=== PATIENT | female | born 1995 | race Caucasian/White ===

== ENCOUNTER 2019-02-17 14:12 | Emergency (ER) | payer OTHER ==
[2019-02-17] MEDS ORDERED: Ondansetron INJ* 2 MG/ML VIAL IV ONE (15:38)
[2019-02-17] MEDS ORDERED: NS 0.9% 1000 ML** 1,000 ML IV ONE (15:38)
--- NOTE | 2019-02-17 15:48 | ED ---
Nausea/Vomiting/Diarrhea HPI - HPI Summary HPI Summary: Patient is a 23-year-old female who presents emergency department for nausea and vomiting since this morning. Patient states she drank too much last night and now cannot keep any fluids down. Patient states she had 6+ glasses of wine. Notes epigastric pain. Otherwise denies abdominal pain, fever, diarrhea. Symptoms are mild in severity. No current modifying factors. - History of Current Complaint Chief Complaint: EDNauseaVomitDiarrh Stated Complaint: VOMITING Time Seen by Provider: 02/17/19 15:16 Hx Obtained From: Patient Pain Intensity: 0 - Allergies/Home Medications Allergies/Adverse Reactions: Allergies Allergy/AdvReac Type Severity Reaction Status Date / Time No Known Allergies Allergy Verified 02/17/19 15:59 Home Medications: Home Medications Bupropion XL* [Wellbutrin XL *] 150 mg PO DAILY 02/17/19 [History Confirmed ] Dextroamphetamine/Amphetamine [Mydayis ER 50 mg Capsule] 50 mg PO DAILY [History Confirmed 02/17/19] Omeprazole 20 mg PO DAILY 02/17/19 [History Confirmed 02/17/19] Ondansetron TAB* [Zofran 4 MG Tab*] 4 mg PO Q6H PRN 02/17/19 [History Confirmed 02/17/19] Propranolol HCl 60 mg PO DAILY 02/17/19 [History Confirmed 02/17/19] PMH/Surg Hx/FS Hx/Imm Hx Previously Healthy: Yes Infectious Disease History: No Infectious Disease History: Denies: Traveled Outside the [place] in Last 30 Days - Family History Known Family History: Positive: Non-Contributory - Social History Occupation: Student Lives: Dormitory/Roommates Alcohol Use: Occasionally Review of Systems Cardiovascular: Negative Respiratory: Negative Positive: Vomiting, Nausea. Negative: Abdominal Pain, Diarrhea All Other Systems Reviewed And Are Negative: Yes Physical Exam Triage Information Reviewed: Yes Vital Signs On Initial Exam: Initial Vitals Temp Pulse Resp BP Pulse Ox 97.3 F 99 16 156/95 100 02/17/19 14:14 02/17/19 14:14 02/17/19 14:14 02/17/19 14:14 02/17/19 14:14 Vital Signs Reviewed: Yes Appearance: Positive: Well-Appearing Skin: Positive: Warm, Dry Head/Face: Positive: Normal Head/Face Inspection Eyes: Positive: Normal, EOMI Neck: Positive: Supple Respiratory/Lung Sounds: Positive: Clear to Auscultation, Breath Sounds Present Cardiovascular: Positive: Normal, RRR Abdomen Description: Positive: Nontender, Soft Neurological: Positive: Normal, CN Intact II-III Psychiatric: Positive: Affect/Mood Appropriate Procedures - Sedation Patient Received Moderate/Deep Sedation with Procedure: No Diagnostics - Vital Signs Vital Signs Temp Pulse Resp BP Pulse Ox 02/17/19 14:14 97.3 F 99 16 156/95 100 - Laboratory Lab Statement: Any lab studies that have been ordered have been reviewed, and results considered in the medical decision making process. Naus/Vom/Diarrhea Course/Dx - Course Course Of Treatment: Pt. with N/V after ETOH consumption. Benign abd. exam. Pt. given fluids and zofran. On re-exam pt. tolerating POs and has had no vomiting in ED. Pt. notes she has zofran at home that was not helping today, will rx compazine. Advised to avoid etoh use. TO increase fluids with water and gatorade. will return to er if sxs change or worsen. - Differential Dx/Diagnosis Differential Diagnoses - Female: Gastroenteritis (Viral), Gastroenteritis ( Bacterial), Vomiting Provider Diagnosis: Alcohol consumption binge drinking, Nausea & vomiting Condition At Discharge: Improved Discharge ED - Sign-Out/Discharge Documenting (check all that apply): Patient Departure - Discharge Plan Condition: Improved Disposition: HOME Prescriptions: Prochlorperazine TAB* [Compazine Tab*] 10 mg PO Q6H PRN #12 tab PRN Reason: Nausea Patient Education Materials: Abuse of Alcohol (ED) Referrals: [facility] - Odell RUELAS [Primary Care Provider] - Additional Instructions: Follow up with [facility] if symptoms persist Compazine for nausea as directed Increase fluids Avoid alcohol Return to ER if symptoms change or worsen - Billing Disposition and Condition Condition: IMPROVED Disposition: Home - Attestation Statements Provider Attestation: I was available for consult. This patient was seen by the GEORGINA. The patient was not presented to, seen by, or examined by me. Viral Wooten MD
[2019-02-17 17:34] VITALS: BP 123/81
[2019-02-17] MEDS ORDERED: O ndansetron ODT 4MG 5TAB PRPK 4 MG PAK PO ONE (18:51)
== END 2019-02-17 17:34 | disposition home or self-care (01) ==
LOC: ED 14:12
DX: R11.2 Nausea with vomiting, unspecified (principal); Z79.899 Other long term (current) drug therapy; F10.10 Alcohol abuse, uncomplicated
CPT/HCPCS: 96361; 96374; 99283; A9270-GY; J2405

== ENCOUNTER 2019-02-17 18:56 | Emergency (ER) | payer OTHER ==
--- NOTE | 2019-02-17 19:34 | ED ---
GI/ HPI - HPI Summary HPI Summary: Patient is a 23 y/o F presenting to [facility] for antiemetic medications for N/V. She was seen earlier today, 02/17/19, for the same symptoms. Patient states that she consumed an excessive amount of alcohol last night, 02/16/19 and today , 02/17/19, she has had multiple episodes of emesis. She refused Zofran as she states that this medication does not provide relief in Sx for her. During initial visit, she was prescribed Compazine and discharged home. 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 She returns now for antiemetic medication. Home medications and allergies are reviewed. - History of Current Complaint Chief Complaint: EDNauseaVomitDiarrh Time Seen by Provider: 02/17/19 19:27 Stated Complaint: NAUSEA/VOMITING PER PT Hx Obtained From: Patient Onset/Duration: Started Hours Ago Timing: Constant Pain Intensity: 2 Associated Signs and Symptoms: Positive: Nausea, Vomiting Aggravating Factor(s): Liquids - alcohol consumption - Allergy/Home Medications Allergies/Adverse Reactions: Allergies Allergy/AdvReac Type Severity Reaction Status Date / Time No Known Allergies Allergy Verified 02/17/19 15:59 PMH/Surg Hx/FS Hx/Imm Hx Sensory History: Denies: Hx Legally Blind, Hx Deafness Opthamlomology History: Denies: Hx Legally Blind EENT History: Denies: Hx Deafness Infectious Disease History: No Infectious Disease History: Denies: Traveled Outside the [place] in Last 30 Days - Family History Known Family History: Negative: Seizure Disorder - Social History Alcohol Use: Occasionally Substance Use Type: Reports: None Smoking Status (MU): Never Smoked Tobacco Review of Systems Negative: Fever - on vitals, temp is 98.8 F Positive: Vomiting, Nausea All Other Systems Reviewed And Are Negative: Yes Physical Exam - Summary Physical Exam Summary: Appearance: The patient is well-nourished in no acute distress and in no acute pain. Skin: The skin is warm and dry, and skin color reflects adequate perfusion. HEENT: The head is normocephalic and atraumatic. The pupils are equal and reactive. The conjunctivae are clear and without drainage. Nares are patent and without drainage. Mouth reveals moist mucous membranes, and the throat is without erythema and exudate. The external ears are intact. The ear canals are patent and without drainage. The tympanic membranes are intact. Neck: The neck is supple with full range of motion and non-tender. There are no carotid bruits. There is no neck vein distension. Respiratory: Chest is non-tender. Lungs are clear to auscultation and breath sounds are symmetrical and equal. Cardiovascular: Heart is regular rate and rhythm. There is no murmur or rub auscultated. There is no peripheral edema and pulses are symmetrical and equal. Abdomen: The abdomen is soft and non-tender. There are normal bowel sounds heard in all four quadrants and there is no organomegaly palpated. Musculoskeletal: There is no back tenderness noted. Extremities are non-tender with full range of motion. There is good capillary refill. There is no peripheral edema or calf tenderness elicited. Neurological: Patient is alert and oriented to person, place and time. The patient has symmetrical motor strength in all four extremities. Cranial nerves are grossly intact. Deep tendon reflexes are symmetrical and equal in all four extremities. Psychiatric: The patient has an appropriate affect and does not exhibit any anxiety or depression. Triage Information Reviewed: Yes Vital Signs On Initial Exam: Initial Vitals Temp Pulse Resp BP Pulse Ox 98.8 F 110 16 130/99 100 02/17/19 18:58 02/17/19 18:58 02/17/19 18:58 02/17/19 18:58 02/17/19 18:58 Vital Signs Reviewed: Yes Procedures - Sedation Patient Received Moderate/Deep Sedation with Procedure: No Diagnostics - Vital Signs Vital Signs Temp Pulse Resp BP Pulse Ox 02/17/19 18:58 98.8 F 110 16 130/99 100 - Laboratory Lab Statement: Any lab studies that have been ordered have been reviewed, and results considered in the medical decision making process. GIGU Course/Dx - Course Course Of Treatment: She refused to be dispensed Zofran therefore she was dispensed Compazine to use at home. She was nontoxic in appearance with stable vitals. - Diagnoses Provider Diagnoses: Vomiting Discharge ED - Sign-Out/Discharge Documenting (check all that apply): Patient Departure - discharge - Discharge Plan Condition: Stable Disposition: HOME Patient Education Materials: Acute Nausea and Vomiting (ED) Referrals: [facility] - MROdell [Primary Care Provider] - 3 Days Additional Instructions: PLEASE RETURN TO ED FOR ANY NEW OR WORSENING SYMPTOMS. PLEASE FOLLOW UP WITH YOUR PRIMARY CARE PHYSICIAN WITHIN 1-3 DAYS. - Billing Disposition and Condition Condition: STABLE Disposition: Home - Attestation Statements Document Initiated by Tarik: Yes Documenting Scribe: GRANT MAR Provider For Whom Tarik is Documenting (Include Credential): JESUS ALBERTS MD Scribedda Attestation: GRANT Hi, scribed for JESUS ALBERTS MD on 02/17/19 at 2138. Scribe Documentation Reviewed: Yes Provider Attestation: The documentation as recorded by the GRANT perrin accurately reflects the service I personally performed and the decisions made by me, JESUS ALBERTS MD Status of Scribe Document: Viewed
[2019-02-17] MEDS ORDERED: Prochlorperazine TAB* 10 MG PO ONE (19:36)
[2019-02-17 20:01] VITALS: BP 118/83
== END 2019-02-17 19:59 | disposition home or self-care (01) ==
LOC: ED 18:56
DX: R11.2 Nausea with vomiting, unspecified (principal)
CPT/HCPCS: 99281; Q0164